=== PATIENT | male | born 1980 | race African-American/Black ===

== ENCOUNTER 2024-08-27 20:04 | Emergency (ER) | payer MEDICAID ==
[~2024-08-27] VITALS: Ht 182.9 cm; Wt 89.8 kg
[2024-08-27 20:25] VITALS: BP 138/94; PULSE 65; RESP 16; TEMP 98.7; O2SAT 99
[2024-08-27] MEDS ORDERED: AMOX1TAB16 MT (20:39)
== END 2024-08-27 20:46 | disposition home or self-care (01) ==
LOC: ER 20:04
DX: K04.7 Periapical abscess without sinus (principal)
CPT/HCPCS: 99283